=== PATIENT | male | born 1995 | race Two or more races ===

== ENCOUNTER 2025-01-13 04:15 | Inpatient (IN) | payer OTHER ==
[~2025-01-13] VITALS: Ht 172.7 cm; Wt 90.1 kg
[2025-01-13 05:10] LABS: PLATELET COUNT (AUTO) 215 K/uL (150-450); RED BLOOD CELL COUNT(AUTO) 5.77 MIL/uL (4.50-5.90); RED CELL DISTRIBUTION WIDTH 13.1 % (11.5-14.5); WHITE BLOOD COUNT (AUTO) 9.9 K/uL (4.5-11.0)
[2025-01-13 05:19] LABS: CALCIUM, TOTAL 8.8 mg/dL (8.8-10.5); CREATININE 0.83 mg/dL (0.60-1.30); GLOMERULAR FILTR. RATE CALC > 60 mL/min (>60); GLUCOSE,RANDOM 134 mg/dL (70-110); SODIUM SERUM 138 mmol/L (136-145); UREA NITROGEN, BLOOD 15 mg/dL (7-18)
[2025-01-13 05:30] LABS: TROPONIN I-HIGH SENSITIVITY Less Than 4 ng/L (<76)
[2025-01-13] MEDS ORDERED: IOHEXOL 350 MG/ML 100 ML VIAL ONE (06:38)
[2025-01-13] MEDS ORDERED: SODIUM CHLORIDE 0.9% 100 ML ONE (06:38)
[2025-01-13 06:56] LABS: ASPARTATE AMINOTRANSFERASE 202 U/L (15-37); TOTAL PROTEIN, SERUM 7.4 g/dL (6.4-8.2)
[2025-01-13 07:04] LABS: LACTIC ACID 2.4 mmol/L (0.4-2.0)
[2025-01-13] MEDS: SODIUM CHLORIDE 0.9% 1,000 ML IV ONE ×3 (07:10→09:51)
[2025-01-13] MEDS ORDERED: ONDANSETRON HCL 4 MG/2 ML VIAL IVP PRN (07:45)
[2025-01-13 08:43] LABS: APPEARANCE,URINE CLEAR (CLEAR); GLUCOSE, URINE (UA) NEGATIVE (NEGATIVE); LEUKOCYTE ESTERASE ,URINE NEGATIVE (NEGATIVE); NITRATE,URINE NEGATIVE (NEGATIVE); OCCULT BLOOD,URINE NEGATIVE (NEGATIVE); SPECIFIC GRAVITIY, URINE 1.024 (1.003-1.030)
[2025-01-13 08:49] LABS: ALCOHOL, URINE DRUG SCREEN NEGATIVE (NEGATIVE); AMPHET/METH SCREEN,URINE NEGATIVE (NEGATIVE); BARBITURATE SCREEN, URINE NEGATIVE (NEGATIVE); CANNABINOID SCREEN,URINE NEGATIVE (NEGATIVE); COCAINE SCREEN,URINE NEGATIVE (NEGATIVE); METHADONE SCREEN, URINE NEGATIVE (NEGATIVE); PH,URINE DRUG SCREEN 6.5 (5.0-8.0)
[2025-01-13] MEDS: PB/HYOSCY/ATR/SCOP/LIDO/MAALOX 55 ML BOTTLE PO ONE (09:20)
[2025-01-13] MEDS: DOCUSATE SODIUM 100 MG CAPSULE PO SCH (09:23)
[2025-01-13] MEDS: ASPIRIN 81 MG CHEWABLE TABLET PO ONE (09:23)
[2025-01-13] MEDS: ACETAMINOPHEN 325 MG TABLET PO PRN (09:23)
[2025-01-13] MEDS: ONDANSETRON HCL 4 MG/2 ML VIAL IVP ONE (09:51)
[2025-01-13] MEDS: PANTOPRAZOLE SODIUM 40 MG/VIAL IVP SCH (09:52)
[2025-01-13] MEDS: RINGERS SOLUTION,LACTATED 1,000 ML IV SCH (10:08)
[2025-01-13] MEDS: PIPERACILLIN/TAZO 3.375 GM/D5W 50 ML IV ONE (10:55)
[2025-01-13] MEDS ORDERED: MEBROFENIN TC99M/MCL ISOTOPE 1 EA INJ INJ ONE (11:15)
[2025-01-13] MEDS: CefTRIAXone 1 GM/DEXTROSE 50 ML IV ONE (12:58)
[2025-01-13 16:09] VITALS: BP 133/88; PULSE 75; RESP 17; TEMP 98.1; O2SAT 98
[2025-01-13] MEDS ORDERED: SODIUM CHLORIDE 0.9% 250 ML IV ONE (17:09)
[2025-01-13] MEDS: PIPERACILLIN/TAZO 3.375 GM/D5W 50 ML IV SCH (17:16)
[2025-01-13 18:28] LABS: TROPONIN I-HIGH SENSITIVITY Less Than 4 ng/L (<76)
[2025-01-13 20:30] VITALS: BP 116/73; PULSE 52; RESP 18; TEMP 98.2; O2SAT 100
[2025-01-14 00:19] VITALS: BP 126/80; PULSE 61; RESP 18; TEMP 97.8; O2SAT 96
[2025-01-14 04:35] VITALS: BP 113/69; PULSE 48; RESP 18; TEMP 97.5; O2SAT 98
[2025-01-14 06:27] LABS: PLATELET COUNT (AUTO) 181 K/uL (150-450); RED BLOOD CELL COUNT(AUTO) 5.39 MIL/uL (4.50-5.90); RED CELL DISTRIBUTION WIDTH 13.3 % (11.5-14.5); WHITE BLOOD COUNT (AUTO) 5.3 K/uL (4.5-11.0)
[2025-01-14 06:57] LABS: CALCIUM, TOTAL 8.5 mg/dL (8.8-10.5); CREATININE 0.96 mg/dL (0.60-1.30); GLOMERULAR FILTR. RATE CALC > 60 mL/min (>60); GLUCOSE,RANDOM 90 mg/dL (70-110); SODIUM SERUM 137 mmol/L (136-145); UREA NITROGEN, BLOOD 9 mg/dL (7-18)
[2025-01-14 08:42] VITALS: BP 117/77; PULSE 55; RESP 18; O2SAT 98
[2025-01-14] MEDS: HEPARIN SODIUM,PORCINE 5,000 UNITS/ML VIAL SQ SCH (08:45)
[2025-01-14] MEDS: OMEPRAZOLE 20 MG CAPSULE PO SCH (08:47)
[2025-01-14 11:01] VITALS: BP 120/76; PULSE 59; RESP 16; TEMP 98.4; O2SAT 99
[2025-01-14 16:18] VITALS: BP 136/85; PULSE 67; RESP 17; TEMP 98.6; O2SAT 98
[2025-01-14 19:28] VITALS: BP 154/85; PULSE 75; RESP 18; TEMP 98.6; O2SAT 95
== END 2025-01-14 20:15 | DRG 445 ==
LOC: EMS 04:19 → EDH 07:37 → 5S 14:10
PROVIDERS: ADMIT Nurse Practitioner Acute Care; ATTEND Surgery
DX: K80.01 Calculus of gallbladder with acute cholecystitis with obstruction (principal); E87.20 Acidosis, unspecified; I95.9 Hypotension, unspecified
CPT/HCPCS: 71045; 71260; 72193; 74160; 76705; 78226; 80048; 80076; 80307; 81003; 83605; 83690; 83735; 84484; 85025; 85730; 87040; 93005; 96361; 96365; 96375; 99285; A9537; J0696; J1644; J2405; J2470; J2543; J7030; J7050; J7120; 36415-L1; 36415-TC